=== PATIENT | female | born 1960 | race Caucasian/White ===

== ENCOUNTER 2017-09-12 16:13 | Emergency (ER) | payer OTHER ==
[2017-09-12 16:58] LABS: Hematocrit 37 % (35-47); Hemoglobin 13.2 g/dl (12.0-16.0); Mean Corpuscular HGB Conc 35 g/dl (31-36); Mean Corpuscular Hemoglobin 34 pg (27-31); Mean Corpuscular Volume 97 fL (80-97); Mean Platelet Volume 6.4 um3 (7.4-10.4); Platelet Count 331 10^3/ul (150-450); Red Blood Count 3.86 10^6/ul (4.00-5.40); Red Cell Distribution Width 13 % (10.5-15); White Blood Count 20.2 10^3/ul (3.5-10.8)
[2017-09-12 17:08] LABS: EGFR Non-African American 85.9 (>60)
[2017-09-12 17:15] LABS: ABS Basophils 0 10^3/ul (0-0.2); ABS Eosinophils 0 10^3/ul (0-0.6); ABS Lymphocytes 1.1 10^3/ul (1.0-4.8); ABS Monocytes 3.9 10^3/ul (0-0.8); ABS Neutrophils 15.2 10^3/ul (1.5-7.7); ABS Nucleated RBC 0 10^3/ul; Eosinophil % 0 % (0-6); Lymphocyte % 5.4 % (25-47); Nucleated Red Blood Cells % 0
[2017-09-12] MEDS ORDERED: NS 0.9% 1000 ML* 1,000 ML IV ONE (18:18)
[2017-09-12] MEDS ORDERED: Ketorolac INJ* 30 MG/ML 1 ML VIAL IV PUSH ONE (18:21)
[2017-09-12] MEDS ORDERED: Iohexol 300* (CONTRAST) 10 ML SDV IV ONE (18:25)
--- NOTE | 2017-09-12 18:29 | ED ---
Complex/Multi-Sys Presentation - HPI Summary HPI Summary: Pt is a 56 y/o female sent from [facility] who c/o facial swelling since 7:00. She started having a slight gum ache yesterday with no swelling, but woke up this morning with right-sided facial swelling and pain. Pt denies any fever or difficulty swallowing. PMHx HTN and depression. Pt is currently on Lisinopril and Lexapro. She is a smoker and drinks alcohol daily. - History Of Current Complaint Chief Complaint: EDGeneral Time Seen by Provider: 09/12/17 18:08 Hx Obtained From: Patient Onset/Duration: Sudden Onset, Lasting Hours - 7:00 Timing: Constant Severity Currently: Moderate - 08/10 Location: Pain At: - Right side face Associated Signs And Symptoms: Positive: Other. Negative: Fever - Allergies/Home Medications Allergies/Adverse Reactions: Allergies Allergy/AdvReac Type Severity Reaction Status Date / Time No Known Allergies Allergy Verified 09/12/17 16:26 Home Medications: Home Medications Escitalopram Oxalate [Lexapro 20 mg] 20 mg PO DAILY 09/12/17 [History Confirmed 09/12/17] Lisinopril TAB* [Prinivil TAB*] 10 mg PO DAILY 09/12/17 [History Confirmed 09/12] PMH/Surg Hx/FS Hx/Imm Hx Cardiovascular History: Reports: Hx Hypertension Psychiatric History: Reports: Hx Depression Infectious Disease History: No Infectious Disease History: Denies: Traveled Outside the [place] in Last 30 Days - Family History Known Family History: Positive: Unknown - Social History Alcohol Use: Daily Alcohol Amount: 3-4 beers/day Substance Use Type: Reports: None Smoking Status (MU): Heavy Every Day Tobacco Smoker Review of Systems Negative: Fever ENT: Other - NEGATIVE: difficulty swallowing Positive: Dental Pain - right upper gums, Other - Right-sided facial swelling All Other Systems Reviewed And Are Negative: Yes Physical Exam - Summary Physical Exam Summary: Appearance: Well appearing, no pain distress Skin: warm, dry, reflects adequate perfusion Head/face: warm, slightly erythematous swelling from lower lid through the jaw line on the right side Eyes: EOMI, JOSELO ENT: swollen upper lip, no swollen tongue or lower lip. Gingival swelling adjacent to right upper first and second molars. Neck: supple, non-tender Respiratory: CTA, breath sounds present Cardiovascular: RRR, pulses symmetrical Abdomen: non-tender, soft Bowel Sounds: present Musculoskeletal: normal, strength/ROM intact Neuro: normal, sensory motor intact, A&Ox3 Triage Information Reviewed: Yes Vital Signs On Initial Exam: Initial Vitals Temp Pulse Resp BP Pulse Ox 99.8 F 90 14 143/72 95 09/12/17 16:21 09/12/17 16:21 09/12/17 16:21 09/12/17 16:21 09/12/17 16:21 Vital Signs Reviewed: Yes Procedures - Incision and Drainage Right Upper Site: Gingival abscess right above the 1st and 2nd right upper molars. Anesthesia: Lidocaine - 1 cc Instrument(s): Needle - Aspirated, 5 cc purulent drainage removed and sent for culture. Pain improving. Diagnostics - Vital Signs Vital Signs Temp Pulse Resp BP Pulse Ox 09/12/17 16:21 99.8 F 90 14 143/72 95 - Laboratory Lab Results: Lab Results 09/12/17 09/12/17 Range/Units 16:43 16:43 WBC 20.2 H (3.5-10.8) 10^3/ul RBC 3.86 L (4.00-5.40) 10^6/ul Hgb 13.2 (12.0-16.0) g/dl Hct 37 (35-47) % MCV 97 (80-97) fL MCH 34 H (27-31) pg MCHC 35 (31-36) g/dl RDW 13 (10.5-15) % Plt Count 331 (150-450) 10^3/ul MPV 6.4 L (7.4-10.4) um3 Neut % (Auto) 75.2 (38-83) % Lymph % (Auto) 5.4 L (25-47) % [place] % (Auto) 19.2 H (0-7) % Eos % (Auto) 0 (0-6) % Baso % (Auto) 0.2 (0-2) % Absolute Neuts (auto) 15.2 H (1.5-7.7) 10^3/ul Absolute Lymphs (auto) 1.1 (1.0-4.8) 10^3/ul Absolute Monos (auto) 3.9 H (0-0.8) 10^3/ul Absolute Eos (auto) 0 (0-0.6) 10^3/ul Absolute Basos (auto) 0 (0-0.2) 10^3/ul Absolute Nucleated RBC 0 10^3/ul Nucleated RBC % 0 Sodium 123 L (135-145) mmol/L Potassium 3.4 L (3.5-5.0) mmol/L Chloride 92 L (101-111) mmol/L Carbon Dioxide 21 L (22-32) mmol/L Anion Gap 10 (2-11) mmol/L BUN 6 (6-24) mg/dL Creatinine 0.70 (0.51-0.95) mg/dL Est GFR ( Amer) 104.0 (>60) Est GFR (Non-Af Amer) 85.9 (>60) BUN/Creatinine Ratio 8.6 (8-20) Glucose 119 H (70-100) mg/dL Calcium 9.0 (8.6-10.3) mg/dL Result Diagrams: 09/12/17 16:43 09/12/17 16:43 Lab Statement: Any lab studies that have been ordered have been reviewed, and results considered in the medical decision making process. Re-Evaluation - Re-Evaluation First Eval Re-Evaluation Time: 18:21 Change: Improved Comment: Pt's pain is improving. Complex Multi-Symp Course/Dx Course Of Treatment: Patient had a needle drainage of dental abscess likely cause any facial cellulitis. She has elevated white blood cell count and fever. She is otherwise not distressed. Her fevers treated with Toradol. Her sodium level is likely low due to potomania. Discussed the case with the hospitalist who will admit. IV clindamycin had been started as well as IV fluids. - Diagnoses Provider Diagnoses: Facial cellulitis, Alcoholism, Hyponatremia, Dental abscess - Physician Notifications Discussed Care Of Patient With: Tete Seaman Time Discussed With Above Provider: 18:50 Instructed by Provider To: Other - Dr. Seaman will accept pt for admission. If there is a facial abscess on the CT pt might need to be transferred. Discharge - Sign-Out/Discharge Documenting (check all that apply): Patient Departure - Admission - Discharge Plan Condition: Fair Disposition: ADMITTED TO [facility] Referrals: Karrie Jiang MD [Primary Care Provider] - - Billing Disposition and Condition Condition: FAIR Disposition: Admitted to [facility]
--- NOTE | 2017-09-12 19:58 | RAD ---
INDICATION: Facial abscess from dental source. COMPARISON: There are no prior studies available for comparison. TECHNIQUE: Contiguous axial sections of the axial images of the facial bones were obtained and reconstructed in the coronal and sagittal planes. The exam was performed following intravenous contrast enhancement with 75 mL of Omnipaque 300 nonionic contrast. FINDINGS: There is prominent diffuse soft tissue swelling present on the right side of the face adjacent to the mandible, maxilla and orbit. The globes appear intact. No retro-orbital soft tissue swelling is seen. There is periapical lucency adjacent to several molar teeth on both sides of the maxilla and a crescent-shaped fluid collection present lateral to the right alveolar ridge of the maxilla measuring 2.1 x 0.6 cm in size faint peripheral rim enhancement most consistent with an abscess secondary to dental disease. There are mildly prominent lymph nodes in the right jugulodigastric region measuring up to 1.5 cm in transverse dimension. The parotid and submandibular glands appear within normal limits There is effacement of the right piriform sinus recommend direct inspection. There is mucosal thickening and near complete opacification of the right maxillary sinus. There is mild mucosal thickening within the ethmoid air cells and left maxillary sinus. The frontal sinus appears clear. There is minimal mucosal thickening within the sphenoid sinus. The mastoid air cells and middle ear cavities appear clear. IMPRESSION: 1. FLUID COLLECTION ADJACENT TO THE RIGHT MAXILLARY ALVEOLAR RIDGE MOST CONSISTENT WITH AN ABSCESS SECONDARY TO EXTENSION FROM A PERIAPICAL DENTAL ABSCESS. RECOMMEND DENTAL CONSULTATION. 2. DIFFUSE SOFT TISSUE SWELLING PRESENT IN THE FACE ON THE RIGHT SIDE MOST CONSISTENT WITH CELLULITIS. 3. RIGHT MAXILLARY AND ETHMOID SINUSITIS. 4. EFFACEMENT OF THE RIGHT PIRIFORM SINUS RECOMMEND ENT CONSULTATION AND DIRECT INSPECTION.
--- NOTE | 2017-09-12 23:43 | ED ---
Progress - Progress Note Progress Note: Consult with Dr. Ya (hospitalist) at 2340. He recommends pt be transferred for further evaluation. Re-Evaluation - Re-Evaluation First Eval Re-Evaluation Time: 18:21 Change: Improved Comment: Pt's pain is improving. Second Eval Re-Evaluation Time: 00:12 Change: Unchanged Comment: Pt unable to be appropriately treated here due to lack of oral surgeon. [facility] contacted at pt's request, no oral surgeon there either. [facility] accepts patient in transfer. IV abx ordered. Course/Dx - Course Course Of Treatment: Patient had a needle drainage of dental abscess likely cause any facial cellulitis. She has elevated white blood cell count and fever. She is otherwise not distressed. Her fevers treated with Toradol. Her sodium level is likely low due to potomania. Discussed the case with the hospitalist who recommends transfer. - Diagnoses Provider Diagnoses: Facial cellulitis, Alcoholism, Hyponatremia, Dental abscess - Provider Notifications Discussed Care Of Patient With: Yovani Ya Time Discussed With Above Provider: 23:40 Instructed by Provider To: Other - Consult with Dr. Ya (hospitalist) at 2340. He recommends pt be transferred for further evaluation. Consult with Dr. Esquivel (emergency medicine at [email or web address] at 0000. He agrees to transfer pt for further evaluation. Discharge - Sign-Out/Discharge Documenting (check all that apply): Patient Departure - Discharge Plan Condition: Fair Disposition: TRANS HIGHER LVL OF CARE FAC Referrals: Karrie Jiang MD [Primary Care Provider] - - Billing Disposition and Condition Condition: FAIR Disposition: Trans Higher Lvl of Care Fac
[2017-09-13] MEDS ORDERED: Clindamycin 600 MG IVPREMIX(* 600 MG/50 ML SDV IV ONE (00:09)
[2017-09-13 01:05] VITALS: BP 119/91
--- NOTE | 2017-09-15 06:48 | PN ---
Progress Note - Progress Note Date of Service: 09/15/17 Note: wound culture grew Streptococcus and normal eulogio. Patient was transferred [facility] Will have records faxed [facility].
== END 2017-09-13 01:06 | disposition short-term general hospital (02) ==
LOC: ED 16:13
DX: K04.7 Periapical abscess without sinus (principal); L03.211 Cellulitis of face; F10.20 Alcohol dependence, uncomplicated; E87.1 Hypo-osmolality and hyponatremia; J32.2 Chronic ethmoidal sinusitis; J32.0 Chronic maxillary sinusitis; I10 Essential (primary) hypertension; F32.9 Major depressive disorder, single episode, unspecified; Z79.899 Other long term (current) drug therapy
CPT/HCPCS: 36415; 70487; 80048; 80320; 83605; 85025; 87040; 87070; 87077; 87186; 87205; 87640; 87641; 96361; 96374; 96375; 99285; G0480; J1885; Q9967

== ENCOUNTER 2023-05-02 20:21 | Observation (INO) ==
[2023-05-02 21:05] LABS: ABS Basophils 0.2 10^3/uL (0.0-0.1); ABS Eosinophils 0.2 10^3/uL (0.0-0.5); ABS Monocytes 1.5 10^3/uL (0.0-0.9); ABS Neutrophils 11.6 10^3/uL (1.5-7.6); Eosinophil % 1.2 %; Hematocrit 34.7 % (35-45); Hemoglobin 11.9 g/dL (11.5-14.3); Lymphocyte % 6.9 %; Mean Corpuscular Hemoglobin 31.8 pg (27-33); Mean Corpuscular Hgb Conc 34.4 g/dL (31-36); Mean Corpuscular Volume 92.5 fL (80-97); Mean Platelet Volume 6.6 fL (7.5-11.2); Platelet Count 384 10^3/uL (150-450); Red Blood Count 3.75 10^6/uL (3.63-4.92); Red Cell Distribution Width 12.9 % (12-17); White Blood Count 14.5 10^3/uL (3.8-11.8)
[2023-05-02] MEDS: Lactated Ringers 1000 ml BAG 1,000 ML IV ONE (21:29)
[2023-05-02 21:50] LABS: Urine Appearance Clear; Urine Bilirubin Negative (Negative); Urine Blood Negative (Negative); Urine Color Colorless; Urine Glucose Negative (Negative); Urine Ketones Negative (Negative); Urine Nitrite Negative (Negative); Urine Protein Negative (Negative); Urine Specific Gravity 1.004 (1.002-1.030); Urine Urobilinogen Negative (Negative); Urine pH 6.5 (5.0-8.0)
[2023-05-02 22:18] LABS: Albumin 3.9 g/dL (3.2-5.2); Albumin/Globulin Ratio 1.1 (1-3); Calcium 8.4 mg/dL (8.6-10.3); Creatinine, Serum 0.84 mg/dL (0.51-0.95); Globulin 3.4 g/dL (2-4); Magnesium 1.9 mg/dL (1.9-2.7); Total Bilirubin 0.3 mg/dL (0.2-1.0); Total Protein 7.3 g/dL (6.4-8.9); eGFR CKD-EPI 77.6 (>60)
[2023-05-02 22:32] LABS: Potassium 3.4 mmol/L (3.5-5.0)
[2023-05-02 23:20] LABS: High Sensitivity Troponin 1 Hr 9 pg/mL (<15)
[2023-05-03] MEDS: KCL 20 MEQ/100 ML IVPREMIX 20 MEQ/100 ML BAG IV SCH (01:55)
[2023-05-03] MEDS: Thiamine 100 MG/ML 2 ml VIAL 100 MG in NS 0.9% 50 ML 50 ML IV SCH (02:22)
[2023-05-03] MEDS: Thiamine 100 MG/ML 2 ml VIAL (200 mg) IM ONE (03:17)
[2023-05-03] MEDS: Multivitamins/Minerals TAB PO SCH (04:06)
[2023-05-03 06:04] LABS: ABS Eosinophils 0.1 10^3/uL (0.0-0.5); ABS Lymphocytes 0.9 10^3/uL (1.0-4.8); ABS Monocytes 1.5 10^3/uL (0.0-0.9); ABS Neutrophils 7.6 10^3/uL (1.5-7.6); Eosinophil % 0.8 %; Hemoglobin 12.3 g/dL (11.5-14.3); Lymphocyte % 8.6 %; Mean Corpuscular Hemoglobin 31.9 pg (27-33); Mean Corpuscular Hgb Conc 35.2 g/dL (31-36); Mean Corpuscular Volume 90.8 fL (80-97); Mean Platelet Volume 6.5 fL (7.5-11.2); Platelet Count 358 10^3/uL (150-450); Red Blood Count 3.85 10^6/uL (3.63-4.92); Red Cell Distribution Width 12.9 % (12-17); White Blood Count 10.1 10^3/uL (3.8-11.8)
[2023-05-03 06:20] LABS: Calcium 8.9 mg/dL (8.6-10.3); Creatinine, Serum 0.62 mg/dL (0.51-0.95); Magnesium 1.9 mg/dL (1.9-2.7); Phosphorus 3.6 mg/dL (2.5-5.0); Potassium 4.5 mmol/L (3.5-5.0); eGFR CKD-EPI 99.4 (>60)
[2023-05-03] MEDS: Enoxaparin 40 MG/0.4 ML SYR SUBCUT SCH (06:28)
[2023-05-03 08:23] LABS: Urine Osmo 276 mOsm/kg (150-1150)
[2023-05-03 09:31] LABS: Osmolality Serum 273 mOsm/kg (275-295)
[2023-05-03 10:35] VITALS: BP 134/73
== END 2023-05-03 12:35 | disposition home or self-care (01) ==
LOC: EDHOLD 20:21 → ED 20:21 → SUATTDRO 05-03 01:45 → MEDTELE 05-03 02:32
PROVIDERS: ADMIT Internal Medicine; ATTEND Student in an Organized Health Care Education/Training Program